=== PATIENT | female | born 1945 | race Caucasian/White ===

== ENCOUNTER 2021-09-11 05:55 | Day surgery (SDC) | payer MEDICARE ==
[~2021-09-11] VITALS: Ht 152.4 cm; Wt 92.1 kg
[~2021-09-11 05:55] MED LIST: ACET-2743 PO; CETI10TA87 PO; DYAZIDE GT; ESCI10TA PO; EZET10TA13 PO; FLUT16H NS; FOSI10TA70 PO; METF-526 PO
[2021-09-11] MEDS ORDERED: 0.9%NACL 1000ML 1,000 ML IV ONE (06:18)
[2021-09-11 06:30] VITALS: BP 153/68
[2021-09-11] MEDS ORDERED: PROPOFOL 10 MG/ML 20ML VIAL IV ONE (08:06)
[2021-09-11] MEDS ORDERED: LIDOCAINE HCL 400MG/20ML VIAL ONE (08:07)
[2021-09-11 08:35] VITALS: BP 129/61
[2021-09-11 08:40] VITALS: BP 120/65
[2021-09-11 08:45] VITALS: BP 129/65
== END 2021-09-11 09:00 | disposition home or self-care (01) ==
LOC: ENDO 05:55 → DAH 05:55 → ENDO 09:00
PROVIDERS: ATTEND Internal Medicine
DX: R93.3 Abnormal findings on diagnostic imaging of other parts of digestive tract (principal); K31.89 Other diseases of stomach and duodenum; R93.5 Abnormal findings on diagnostic imaging of other abdominal regions, including retroperitoneum; I10 Essential (primary) hypertension; E11.9 Type 2 diabetes mellitus without complications; E78.5 Hyperlipidemia, unspecified; Z79.84 Long term (current) use of oral hypoglycemic drugs; Z79.899 Other long term (current) drug therapy
CPT/HCPCS: 43238; 82948; 87635; 93005; A4215 ×3; A4216; A4221; A4222; A4223; A4606; A4620; A4657; A4663; C9803; J2704; J3490; J7030